=== PATIENT | male | born 1955 | race Caucasian/White ===

== ENCOUNTER → 2019-02-24 | Outpatient (CLI) | payer BC ==
[2019-02-24 13:04] LABS: Protein, Urine Random <5.0 mg/dL (0.0-11.9)
== END | disposition home or self-care (01) ==
LOC: LAB SHORT 12:05 → LAB 12:05
PROVIDERS: Internal Medicine
DX: N18.1 Chronic kidney disease, stage 1 (principal)
CPT/HCPCS: 82570; 84156

== ENCOUNTER 2020-04-12 12:47 | Day surgery (SDC) | payer BC ==
[~2020-04-12] VITALS: Ht 177.8 cm; Wt 94.1 kg
[~2020-04-12 12:47] MED LIST: AMLO5 PO; Aspir 8181 MG PO; CLON.1 PO; COENZYME Q10200 MG PO; Klor-Con 1010 MEQ PO; LOSARTAN POTAS100 M1 PO; MAGNESIUM OXID500 MG PO; METO50ER PO; Vitamin D2000 UNIT PO
== END 2020-04-12 15:44 | disposition home or self-care (01) ==
LOC: ORSCSDS 12:47
PROVIDERS: Ophthalmology
PROC: 08SPXZZ Reposition Left Upper Eyelid, External Approach (ICD-10-PCS; principal; 2020-04-12 14:00)
PROC: 08SQXZZ Reposition Right Lower Eyelid, External Approach (ICD-10-PCS; principal; 2020-04-12 14:00)
PROC: 08SNXZZ Reposition Right Upper Eyelid, External Approach (ICD-10-PCS; principal; 2020-04-12 14:00)
PROC: 08SRXZZ Reposition Left Lower Eyelid, External Approach (ICD-10-PCS; principal; 2020-04-12 14:00)
DX: H02.015 Cicatricial entropion of left lower eyelid (principal); H02.012 Cicatricial entropion of right lower eyelid; H02.011 Cicatricial entropion of right upper eyelid; H02.014 Cicatricial entropion of left upper eyelid; I10 Essential (primary) hypertension; E78.5 Hyperlipidemia, unspecified; N18.1 Chronic kidney disease, stage 1; Z87.891 Personal history of nicotine dependence; Z79.899 Other long term (current) drug therapy; Z79.82 Long term (current) use of aspirin
CPT/HCPCS: J0171; J2250; J2704; J3010; J7040

== ENCOUNTER → 2022-08-06 | Outpatient (CLI) | payer BC ==
[2022-08-09 09:22] LABS: Stool Occult Bld Immuno 1 Negative (NEGATIVE)
== END | disposition home or self-care (01) ==
LOC: LAB SHORT 12:00
PROVIDERS: Nurse Practitioner Family
DX: Z12.11 Encounter for screening for malignant neoplasm of colon (principal)
CPT/HCPCS: G0328